=== PATIENT | female | born 2000 | race Hispanic/Latino ===

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

== ENCOUNTER 2024-06-16 22:53 | Emergency (ER) | payer MEDICAID ==
[~2024-06-16] VITALS: Ht 157.5 cm; Wt 68.5 kg
[~2024-06-16 22:53] MED LIST: PNV1TABL17 PO
--- NOTE | 2024-06-16 23:57 | ERN ---
General Chief Complaint: Headache Stated Complaint: C/O HEADACHE; Time Seen by MD: 23:06 Source: patient History of Present Illness Initial Comments Patient is a healthy 23-year-old female who has had a headache for the last two days associated with photophobia blurry vision and a slight amount of nausea and emesis. She does have emesis but she is also . The headache seems to start in the back of her head and then migrates to the front. Tylenol has not helped at all. She has never had headaches this bad. She is otherwise healthy Allergies: Coded Allergies: No Known Drug Allergies (Unverified Allergy, Unknown, 01/26/18) Home Meds Reported Medications Pnv Cmb#21/Iron/Folic Acid ( Complete Caplet) 1 Each Tablet, 1 EACH PO DAILY, TAB 01/26/18 Past Medical History Past Medical History: No Pertinent History Past Surgical History: None Female( History) LMP: Jan 09, 2024 : 3 Para: 2 Aborts: 0 ROS Dictation Review of systems is negative she has no mental status changes she has no diplopia she has no chest pain or heart palpitations she has no shortness of breath she has no GI symptoms she has no urinary symptoms in his passing stool normally. She has no fevers. She can move all of her extremities no distal neurovascular compromise. No aura associated with the headache. Physical Exam General Appearance: (+) moderate distress Orientation: (+) oriented x 3 Head/Face Trauma: No Eye: bilateral eye normal inspection, bilateral eye PERRL, bilateral eye EOMI Ear, Nose, Throat: (+) hearing grossly normal, (+) normal ENT inspection, (+) moist mucous membraine Neck: (+) normal inspection, (+) supple, (+) tender Neck Comment When I palpate the patient's neck she has no C-spine tenderness but when I palpate the insertion of the right paraspinal muscle I elicit the headache that migrates to the back of her head and the top of her head. Respiratory: (+) chest non-tender, (+) lungs clear Heart: (+) regular Vascular: (+) no edema, (+) normal peripheral pulse Gastrointestinal: (+) soft, (+) non-tender MDM Healthy 23-year-old female with a headache worst she has ever had in her life. But it is elicited when I massage her neck muscles. I feel no need to get a CT scan of her head as it is most likely a tension headache they do get better as the proceeds. I will treat the patient with fluid. Unfortunately, Flexeril is only considered safe during the 2nd and 3rd trimesters of and ketorolac should be avoided during altogether. We will bolus a L of fluid to help with her nausea. Extensive literature review and discussions with pharmacy we learned there are only two medications that the patient can take to help with her symptoms she can take ibuprofen 400 mg q.day for only two days and then she could take Tylenol with caffeine in it for only two days as long as she keeps the daily dose of c affeine less than 200 mg. I have given the patient some more Tylenol and some more ibuprofen to help with the symptoms. Patient has completed her fluid bolus and her symptoms are improved the headache has moved a little bit more forward towards the front of her head. I explained to her that there was really not much more that I can offer her in terms of pain medications or muscle relaxants with her . She understands and would like to go home. ED Course Orders Procedure Category Date Status Time 0.9%Nacl 1000ml (Ns PHA 06/17/24 Complete 1000ml) 00:00 Ibuprofen 200 Mg PHA 06/17/24 Complete Tablet (Motrin) 01:00 Acetaminophen 325 Tab PHA 06/17/24 Complete (Tylenol 325mg Tab 01:00 Current Medications Medications (Trade) Dose Ordered Sig/Annalee Route PRN Reason Start Time Stop Time Status Last Admin Dose Admin Acetaminophen (TYLenol 325MG TAB) 325 mg ONCE ONCE PO 06/17/24 01:00 06/17/24 01:01 DC Ibuprofen (moTRIN) 200 mg ONCE ONCE PO 06/17/24 01:00 06/17/24 01:01 DC Sodium Chloride 1,000 ml @ 0 mls/hr ONCE ONCE IV 06/17/24 00:00 06/17/24 00:05 DC 06/17/24 00:28 Vital Signs Date Time Temp Pulse Resp B/P (MAP) Pulse Ox O2 Delivery O2 Flow Rate FiO2 06/17/24 00:31 99.0 82 18 102/52 98 Room Air* 0 21 06/16/24 22:56 99.0 87 20 108/62 98 Room Air DX & DISP Disposition: Discharge Departure Condition: Stable Additional Instructions: You are allowed to have 400 mg of ibuprofen a day for two days when you have one of these headaches. New are also allowed to have Tylenol and caffeine. The Tylenol you can take more often. The daily intake of the caffeine needs to be less than 200 mg of caffeine a day and for only two days. I can only recommend warm compresses massages and staying hydrated. Headaches should get better as the progresses. Please return if symptoms are unbearable. Referrals: PALOMA ALEMAN MD (PCP) ANTONIO ASHBY MD Jun 16, 2024 23:57
[2024-06-17] MEDS: 0.9%NACL 1000ML 1,000 ML IV ONE (00:28)
--- NOTE | 2024-06-17 00:35 | NUR ---
A0 HEADACHE X2DAYS
--- NOTE | 2024-06-17 00:36 | NUR ---
SBAR GIVEN TO AYALA DELAROSA
[2024-06-17] MEDS: ibuPROFEN 200 MG TAB PO ONE (01:32)
[2024-06-17] MEDS: acetaMINOPHEN 325 MG TAB PO ONE (01:35)
[2024-06-17 02:10] VITALS: BP 110/64; PULSE 78; RESP 16; TEMP 98.1; O2SAT 99
== END 2024-06-17 02:17 | disposition home or self-care (01) ==
LOC: EDH 22:53
DX: O26.892 Other specified pregnancy related conditions, second trimester (principal); R51.9 Headache, unspecified; Z3A.23 23 weeks gestation of pregnancy; Z79.899 Other long term (current) drug therapy
CPT/HCPCS: 99283; J7030; 99282